=== PATIENT | female | born 1975 ===

== ENCOUNTER 2024-11-17 05:50 | Day surgery (SDC) | payer OTHER ==
[2024-11-09 09:11] VITALS: BP 128/80
[~2024-11-17] VITALS: Ht 160 cm; Wt 86.2 kg
[~2024-11-17 05:50] MED LIST: DAILY VALUE1 EACH PO; ESCITALOPRA5 MG/5 ML; SYNTHROID50 MCG PO; VITAMIN D310 MCG/1 M
[2024-11-17] MEDS ORDERED: POVIDONE-IODINE 118 ML BOTT TOP ONE (08:15)
[2024-11-17] MEDS ORDERED: DIBUCAINE 30 GM TUBE RECTAL ONE (08:15)
[2024-11-17] MEDS ORDERED: BUPIVACAINE HCL 30 ML VIAL IJ ONE (08:15)
[2024-11-17] MEDS ORDERED: LIDOCAINE HCL 1%/EPINEPHRINE 20ML VIAL IJ ONE (08:15)
[2024-11-17] MEDS ORDERED: TRIAMCINOLONE ACETONIDE 40 MG/ML VIAL IJ ONE (08:15)
[2024-11-17] MEDS ORDERED: METRONIDAZOLE/SODIUM CHLORIDE 500 MG/100 ML PIGGYBACK IV ONE (08:15)
[2024-11-17] MEDS ORDERED: HEMOSTATIC MATRIX 1 KIT KIT TOP ONE (08:15)
== END 2024-11-17 12:40 | disposition home or self-care (01) ==
LOC: CIR.AMB 05:50
PROVIDERS: ATTEND Colon & Rectal Surgery
DX: K64.2 Third degree hemorrhoids (principal); K64.4 Residual hemorrhoidal skin tags; L91.0 Hypertrophic scar; K62.2 Anal prolapse